=== PATIENT | male | born 1990 | race African-American/Black ===

== ENCOUNTER 2017-01-18 01:19 | Emergency (ER) | payer OTHER ==
[~2017-01-18] VITALS: Ht 188 cm; Wt 90.7 kg
[~2017-01-18 01:19] MED LIST: DOXY150T
[2017-01-18 01:42] VITALS: BP 125/73
== END 2017-01-18 01:58 | disposition home or self-care (01) ==
LOC: ER 01:23
DX: K60.2 Anal fissure, unspecified (principal); F17.200 Nicotine dependence, unspecified, uncomplicated; F12.10 Cannabis abuse, uncomplicated
CPT/HCPCS: A4606; Z7610